=== PATIENT | female | born 1930 | race Caucasian/White ===

== ENCOUNTER 2017-04-12 11:51 | Emergency (ER) | payer MEDICARE, MEDICAID ==
[2017-04-12] MEDS ORDERED: NORMAL SALINE 1000 ML 1,000 ML IV ONE (12:37)
[2017-04-12 13:45] LABS: HEMATOCRIT 36.7 % (36.0-47.0); HEMOGLOBIN 11.6 g/dL (12.0-15.5); HGB HCT DIFFERENCE -1.9; MEAN CORPUSCULAR HEMOGLOBIN 25.2 pg (27.0-33.4); MEAN CORPUSCULAR HGB CONC 31.7 g/dL (32.0-36.0); MEAN CORPUSCULAR VOLUME 80 fl (80-97); RED BLOOD COUNT 4.62 10^6/uL (3.72-5.28); RED CELL DISTRIBUTION WIDTH 16.8 % (11.5-14.0); WHITE BLOOD COUNT 21.4 10^3/uL (4.0-10.5)
[2017-04-12 13:54] LABS: PROTHROMBIN TIME 24.3 SEC (11.4-15.4)
[2017-04-12 14:07] LABS: BAND NEUTROPHILS % (MANUAL) 1 % (3-5); BASOPHILS % (MANUAL) 0 % (0-2); EOSINOPHILS % (MANUAL) 1 % (0-6); LYMPHOCYTES % (MANUAL) 7 % (13-45); TOTAL CELLS COUNTED 100
[2017-04-12 14:08] LABS: ANISOCYTOSIS 1+; OVALOCYTES SLIGHT; POIKILOCYTOSIS SLIGHT; TOXIC GRANULATION SLIGHT
[2017-04-12 14:12] LABS: ALANINE AMINOTRANSFERASE 21 U/L (9-52); ALBUMIN 3.3 g/dL (3.5-5.0); ALKALINE PHOSPHATASE 95 U/L (38-126); ANION GAP 12 (5-19); ASPARTATE AMINO TRANSFERASE 16 U/L (14-36); BILIRUBIN,DIRECT 0.4 mg/dL (0.0-0.4); BILIRUBIN,TOTAL 0.5 mg/dL (0.2-1.3); BLOOD UREA NITROGEN 34 mg/dL (7-20); CALCIUM 9.1 mg/dL (8.4-10.2); CARBON DIOXIDE 23 mmol/L (22-30); CHLORIDE 105 mmol/L (98-107); CREATININE RESULT 1.67 mg/dL (0.52-1.25); GLUCOSE 138 mg/dL (75-110); POTASSIUM 4.9 mmol/L (3.6-5.0); SODIUM 140.4 mmol/L (137-145); TOTAL PROTEIN 6.5 g/dL (6.3-8.2)
[2017-04-12 14:18] LABS: CREATINE KINASE < 20 U/L (30-135)
[2017-04-12 14:31] LABS: VENOUS BLOOD HCO3 27.5 mmol/L (20-32); VENOUS BLOOD PCO2 47.2 mmHg (35-63); VENOUS BLOOD PH 7.38 (7.30-7.42)
--- NOTE | 2017-04-12 14:35 | RADIOLOGY REPORT (SQ) ---
EXAM DESCRIPTION: CHEST SINGLE VIEW COMPLETED DATE/TIME: 04/12/2017 1:56 pm REASON FOR STUDY: bed 10 sepsis protocol COMPARISON: None. EXAM PARAMETERS: NUMBER OF VIEWS: One view. TECHNIQUE: Single frontal radiographic view of the chest acquired. RADIATION DOSE: NA LIMITATIONS: None. FINDINGS: LUNGS AND PLEURA: No opacities, masses or pneumothorax. No pleural effusion. MEDIASTINUM AND HILAR STRUCTURES: No masses. Contour normal. HEART AND VASCULAR STRUCTURES: Heart normal in size. Normal vasculature. BONES: No acute findings. HARDWARE: EKG leads overlie the chest. Battery pack projects over the left lung base. Median sterno tiffani wires noted intact. Prior CABG. OTHER: No other significant finding. IMPRESSION: NO ACUTE RADIOGRAPHIC FINDING IN THE CHEST. TECHNICAL DOCUMENTATION: JOB ID: [id number]
--- NOTE | 2017-04-12 14:37 | RADIOLOGY REPORT (SQ) ---
EXAM DESCRIPTION: SHOULDER RIGHT 2 OR MORE VIEWS COMPLETED DATE/TIME: 04/12/2017 1:56 pm REASON FOR STUDY: right shoulder pain, fall COMPARISON: None. NUMBER OF VIEWS: Three views. TECHNIQUE: Internal rotation, external rotation, and Y view images acquired of the right shoulder. LIMITATIONS: None. FINDINGS: MINERALIZATION: Osteopenia. BONES: No acute fracture or dislocation. No worrisome bone lesions. Degenerative changes noted in t he acromioclavicular and glenohumeral joint space including osteophyte formation. There is narrowing of the interval between the in the humeral head and the acromion would suggest underlying internal d erangement/rotator cuff injury. JOINTS: No dislocation. VISUALIZED LUNGS AND RIBS: No pneumothorax. No rib fracture. SOFT TISSUES: No radiopaque foreign body. OTHER: No other significant finding. IMPRESSION: No acute fracture or dislocation identified. Severe osteopenia. There is significant d egenerative changes of the acromioclavicular and glenohumeral joints. There is narrowing of the inte rval of the humeral head and acromion which suggest internal derangement/ rotator cuff injury. TECHNICAL DOCUMENTATION: JOB ID: [id number]- All Rights Reserved
--- NOTE | 2017-04-12 14:40 | RADIOLOGY REPORT (SQ) ---
EXAM DESCRIPTION: CT HEAD WITHOUT COMPLETED DATE/TIME: 04/12/2017 2:30 pm REASON FOR STUDY: fall, AMS COMPARISON: None. TECHNIQUE: Axial images acquired through the brain without intravenous contrast. Images reviewed wi th bone, brain and subdural windows. Images stored on PACS. All CT scanners at this facility use dose modulation, iterative reconstruction, and/or weight based d osing when appropriate to reduce radiation dose to as low as reasonably achievable (ALARA). [facility]: Dose Right [facility]: CareDose [facility]: Dose Right [facility]: Teradose 4D [facility]: [place] RADIATION DOSE: 64.61mGy. LIMITATIONS: None. FINDINGS: VENTRICLES: Prominent. CEREBRUM: No masses. No hemorrhage. No midline shift. Areas of low density in the white matter mos t likely due to chronic micro-vascular ischemic change. No evidence for acute infarction. CEREBELLUM: No masses. No hemorrhage. No alteration of density. No evidence for acute infarction. EXTRAAXIAL SPACES: Age-related involutional change. No fluid collections. No masses. ORBITS AND GLOBE: No intra- or extraconal masses. Normal contour of globe without masses. CALVARIUM: No fracture. PARANASAL SINUSES: No fluid or mucosal thickening. SOFT TISSUES: No mass or hematoma. OTHER: No other significant finding. IMPRESSION: CHRONIC CHANGES OF ATROPHY AND MICROVASCULAR ISCHEMIA. NO ACUTE PROCESS. TECHNICAL DOCUMENTATION: JOB ID: [id number] Quality ID # [id number]: Final reports with documentation of one or more dose reduction techniques (e.g., Au tomated exposure control, adjustment of the mA and/or kV according to patient size, use of iterative reconstruction technique) 2010 [email or web address]- All Rights Reserved
[2017-04-12 14:41] LABS: APPEARANCE,URINE CLEAR; BILIRUBIN,URINE NEGATIVE (NEGATIVE); GLUCOSE, URINE NEGATIVE (NEGATIVE); KETONES,URINE NEGATIVE (NEGATIVE); URINE SPECIFIC GRAVITY 1.018
[2017-04-12 14:42] LABS: LEUKOCYTE ESTERASE,URINE NEGATIVE (NEGATIVE); NITRITE,URINE NEGATIVE (NEGATIVE); PROTEIN,URINE NEGATIVE (NEGATIVE); RBC,URINE NONE SEEN /HPF; UROBILINOGEN,URINE NEGATIVE mg/dL (<2.0); WBC,URINE NONE SEEN /HPF
--- NOTE | 2017-04-12 14:55 | ER Document Report ---
ED General - General Chief Complaint: Urinary Problem Stated Complaint: WEAKNESS Time Seen by Provider: 04/12/17 12:34 Notes: Patient is an 86-year-old female, past medical history chronic sacral wound, on Coumadin for A. fib, presents with her daughter and granddaughter who are her caretakers. She had a fall 2 weeks ago and landed on the right side of her head. In addition, she is having pain over her right shoulder and her urine is dark. Patient is not drinking much. Family members are talking to their primary care physician about possible placement in hospice. The patient denies chest pain, shortness of breath, headache, nausea, vomiting, numbness, tingling , dysuria or flank pain. TRAVEL OUTSIDE OF THE [place] IN LAST 30 DAYS: No Past Medical History - General Information source: Patient, Relative - Social History Smoking Status: Former Smoker Chew tobacco use (# tins/day): No Frequency of alcohol use: None Drug Abuse: None Family History: Reviewed & Not Pertinent Patient has suicidal ideation: No Patient has homicidal ideation: No - Past Medical History Cardiac Medical History: Reports: Hx Atrial Fibrillation, Hx Congestive Heart Failure, Hx Hypercholesterolemia, Hx Hypertension Pulmonary Medical History: Reports: Hx COPD Neurological Medical History: Reports: Hx Seizures Renal/ Medical History: Denies: Hx Peritoneal Dialysis GI Medical History: Reports: Hx Gastroesophageal Reflux Disease Psychiatric Medical History: Reports: Hx Depression Past Surgical History: Reports: Hx Abdominal Surgery, Hx Appendectomy, Hx Cardiac Surgery, Hx Cholecystectomy, Hx Hysterectomy, Hx Orthopedic Surgery - Immunizations Hx Diphtheria, Pertussis, Tetanus Vaccination: Yes Review of Systems - Review of Systems Notes: REVIEW OF SYSTEMS: CONSTITUTIONAL: -fevers, -chills EENT: -eye pain, -difficulty swallowing, -nasal congestion CARDIOVASCULAR:-chest pain, -syncope. RESPIRATORY: -cough, -SOB GASTROINTESTINAL: -abdominal pain, - nausea, -vomiting, -diarrhea GENITOURINARY: -dysuria, -hematuria, +dark urine MUSCULOSKELETAL: +left shoulder pain, -back pain, -neck pain SKIN: -rash or skin lesions. HEMATOLOGIC: -easy bruising or bleeding. LYMPHATIC: -swollen, enlarged glands. NEUROLOGICAL: -altered mental status or loss of consciousness, -headache, - neurologic symptoms PSYCHIATRIC: -anxiety, -depression. ALL OTHER SYSTEMS REVIEWED AND NEGATIVE. Physical Exam - Vital signs Vitals: Temp Pulse Resp Pulse Ox 98.5 F 101 H 16 98 04/12/17 12:29 04/12/17 12:29 04/12/17 12:29 04/12/17 12:29 - Notes Notes: PHYSICAL EXAMINATION: GENERAL: Well-appearing, well-nourished and in no acute distress. HEAD: Small contusion over right parietal scalp, normocephalic. EYES: Pupils equal round and reactive to light, extraocular movements intact, sclera anicteric, conjunctiva are normal. ENT: nares patent, oropharynx clear without exudates. Moist mucous membranes. NECK: Normal range of motion, supple without lymphadenopathy LUNGS: Breath sounds clear to auscultation bilaterally and equal. No wheezes rales or rhonchi. HEART: Regular rate and rhythm without murmurs ABDOMEN: Soft, nontender, normoactive bowel sounds. No guarding, no rebound. No masses appreciated. EXTREMITIES: Normal range of motion, no pitting or edema. No cyanosis. NEUROLOGICAL: Cranial nerves grossly intact. Normal speech. Normal sensory and motor exams. PSYCH: Normal mood, normal affect. SKIN: Stage 1 sacral ulcer without discharge or erythema Course - Re-evaluation Re-evalutation: Pt appears well. Negative head CT for fractures or bleed. Labs and urine are unremarkable, other than a leukocytosis and slight increase in BUN and creatinine. No old labs to compare this to. Patient has no signs of infection at this time. Shoulder x-ray shows a possible rotator cuff tear. Instructed her to follow-up with her primary care physician to have her labs repeated. Daughters mention that they are trying to get the patient into hospice. They have home nursing. Given return precautions and they understand. - Vital Signs Vital signs: Temp Pulse Resp BP Pulse Ox 97.7 F 94 16 113/56 L 97 04/12/17 16:22 04/12/17 16:22 04/12/17 16:22 04/12/17 16:22 04/12/17 16:22 - Laboratory Result Diagrams: 04/12/17 13:25 04/12/17 13:25 Laboratory results interpreted by me: 04/12/17 04/12/17 04/12/17 12:45 13:25 13:25 WBC 21.4 H Hgb 11.6 L MCH 25.2 L MCHC 31.7 L RDW 16.8 H Seg Neuts % (Manual) 85 H Band Neutrophils % 1 L Lymphocytes % (Manual) 7 L Abs Neuts (Manual) 18.4 H PT 24.3 H BUN Creatinine Est GFR ( Amer) Est GFR (Non-Af Amer) Glucose POC Glucose 139 H Creatine Kinase Albumin 04/12/17 13:25 WBC Hgb MCH MCHC RDW Seg Neuts % (Manual) Band Neutrophils % Lymphocytes % (Manual) Abs Neuts (Manual) PT BUN 34 H Creatinine 1.67 H Est GFR ( Amer) 35 L Est GFR (Non-Af Amer) 29 L Glucose 138 H POC Glucose Creatine Kinase < 20 L Albumin 3.3 L - Diagnostic Test Radiology reviewed: Image reviewed, Reports reviewed Radiology results interpreted by me: CT Head: NAD Right shoulder x-ray: possible rotator cuff tear Discharge - Discharge Clinical Impression: Head contusion Qualifiers: Encounter type: initial encounter Contusion of head detail: scalp Qualified Code(s): S00.03XA - Contusion of scalp, initial encounter Right shoulder pain Qualifiers: Chronicity: unspecified Qualified Code(s): M25.511 - Pain in right shoulder Leukocytosis Qualifiers: Leukocytosis type: unspecified Qualified Code(s): D72.829 - Elevated white blood cell count, unspecified Condition: Stable Disposition: HOME, SELF-CARE Additional Instructions: Follow-up with Dr. Lawrence for further evaluation of your elevated white blood cell count and further referral for hospice. Contusion Your injury has resulted in a contusion -- a crushing of the deep tissues. No injury to important structures was detected during the physician's exam. Contusions vary in the amount of pain they cause, and in the length of time required for healing. Typically, the area will become bruised, and will remain painful to touch for two or three weeks. However, most patients are back to working and playing within a few days. After the initial period of rest and cold-packs, your symptoms (together with the doctor's recommendations) will determine how rapidly you can get back to full activity. Usually this means "do what feels okay, but don't do things that hurt." If re-examination was recommended, it's important to follow up as instructed. Call the doctor or return any time if pain increases, if swelling becomes severe, if you develop numbness or weakness in an injured extremity, or if any other alarming symptoms occur. NORMAL EXAM AND WORKUP: At this time, your examination and workup show no significant abnormality. No significant abnormal physical findings were noted. All laboratory, EKG, and imaging (x-ray, CT scans, ultrasound) studies that were ordered show no significant abnormality. Although your examination and all studies that were ordered showed no significant abnormal finding, there are no examinations and no studies that are 100% accurate. There is always the possibility that some abnormality could exist and not be detected with physical examination or within the limits and capabilities of laboratory and other studies. You should return or follow up as you were instructed on your visit today for further evaluation if your symptoms do not resolve. Referrals: TUSHAR LAWRENCE MD [Primary Care Provider] - Follow up as needed
[2017-04-12 16:23] VITALS: BP 113/56
--- NOTE | 2017-04-13 11:03 | EKG REPORT ---
SEVERITY:- ABNORMAL ECG - SINUS OR ECTOPIC ATRIAL RHYTHM LEFT BUNDLE BRANCH BLOCK : Confirmed by: Jenny Samuel MD 13-Apr-2017 11:02:48
== END 2017-04-12 16:40 | disposition home or self-care (01) ==
LOC: ER 11:51
DX: S00.03XA Contusion of scalp, initial encounter (principal); M25.511 Pain in right shoulder; D72.829 Elevated white blood cell count, unspecified; L89.151 Pressure ulcer of sacral region, stage 1; W19.XXXA Unspecified fall, initial encounter; I48.91 Unspecified atrial fibrillation; Z79.02 Long term (current) use of antithrombotics/antiplatelets; J44.9 Chronic obstructive pulmonary disease, unspecified; Z90.49 Acquired absence of other specified parts of digestive tract; Z90.710 Acquired absence of both cervix and uterus
CPT/HCPCS: 93005; 99285; 51701; 36415; 87040; 87086; 82962; 82550; 85025; 85610; 80053; 81001; 84484; 82803; 83605; 71010; 73030; 70450; 93010; J7030